=== PATIENT | male | born 1955 | race Hispanic/Latino ===

== ENCOUNTER → 2019-07-04 | Outpatient (CLI) | payer OTHER ==
[~2019-07-04] MED LIST: ASCO10007 PO; ASPI-555 PO; ATOR20TA65 PO; CLOP75TA32 PO; CYAN250010 PO; DOCU-275 PO; IRON PO; LATA1OIL MC; LEVE500T19 PO; LOSA25TA41 PO; MECL12.585 PO; METO-408 PO; NITR0.4T SL; OMEG-53 PO; TAMS0.4C32 PO
== END | disposition home or self-care (01) ==
LOC: SHCH 09:49
PROVIDERS: ATTEND Internal Medicine Cardiovascular Disease
DX: I65.23 Occlusion and stenosis of bilateral carotid arteries (principal)
CPT/HCPCS: 93880

== ENCOUNTER → 2021-03-12 | Outpatient (CLI) | payer OTHER ==
[~2021-03-12] MED LIST changes: +ASCO100031 PO; -ASCO10007 PO; -ASPI-555 PO; +ASPI-556 PO; +MECL-226 PO; -MECL12.585 PO
== END | disposition home or self-care (01) ==
LOC: SHCH 07:52
PROVIDERS: ATTEND Internal Medicine Cardiovascular Disease
DX: I65.23 Occlusion and stenosis of bilateral carotid arteries (principal); I35.1 Nonrheumatic aortic (valve) insufficiency; R01.1 Cardiac murmur, unspecified; E78.5 Hyperlipidemia, unspecified; E11.9 Type 2 diabetes mellitus without complications; I25.3 Aneurysm of heart
CPT/HCPCS: 93306; 93356; 93880

== ENCOUNTER → 2022-08-30 | Outpatient (CLI) | payer OTHER ==
[~2022-08-30] MED LIST changes: +DOCU-270 PO; -DOCU-275 PO; +REGADENOSON 0.4 MG/5 ML PF SYG IVP ONE
== END | disposition home or self-care (01) ==
LOC: SHCH 08:33
PROVIDERS: ATTEND Internal Medicine Cardiovascular Disease
DX: R07.9 Chest pain, unspecified (principal); I10 Essential (primary) hypertension; E78.5 Hyperlipidemia, unspecified; Z95.1 Presence of aortocoronary bypass graft; Z79.899 Other long term (current) drug therapy
CPT/HCPCS: 78452; 96374; 93017; J2785; A9500 ×2

== ENCOUNTER → 2023-09-23 | Outpatient (CLI) | payer OTHER ==
[~2023-09-23] MED LIST changes: -REGADENOSON 0.4 MG/5 ML PF SYG IVP ONE
== END | disposition home or self-care (01) ==
LOC: SHCH 09:01
PROVIDERS: ATTEND Internal Medicine Cardiovascular Disease
DX: I35.8 Other nonrheumatic aortic valve disorders (principal); I25.10 Atherosclerotic heart disease of native coronary artery without angina pectoris; I10 Essential (primary) hypertension; E78.5 Hyperlipidemia, unspecified; E11.9 Type 2 diabetes mellitus without complications
CPT/HCPCS: 93306

== ENCOUNTER → 2024-07-25 | Outpatient (CLI) | payer OTHER | END | disposition home or self-care (01) | LOC: SHCH 07:44 | PROVIDERS: ATTEND Internal Medicine Cardiovascular Disease | DX: R00.1 Bradycardia, unspecified (principal); R94.31 Abnormal electrocardiogram [ECG] [EKG]; I25.10 Atherosclerotic heart disease of native coronary artery without angina pectoris | CPT/HCPCS: 93306 ==

== ENCOUNTER 2024-10-26 05:36 | Observation (INO) | payer OTHER ==
--- NOTE | 2024-10-24 10:05 | EKG ---
[facility] Test Date: 2024-10-24 Test Time: 10:41:50 Pat Name: CLARE JOHNS Department: [facility] Room: Gender: M [employer] Operator: [id number] : 1955 Requested By: Iftikhar GUTIERREZ Order Number: [id number] Reading MD: Antonietta Samson Measurements Intervals [place] Rate: 50 P: 37 AR: 203 QRS: 9 QRSD: 112 T: 90 QT: 443 QTc: 402 Interpretive Statements Sinus rhythm Nonspecific repol abnormality, lateral leads Compared to ECG 11/08/2016 10:58:54 Early repolarization now present Sinus bradycardia no longer present Myocardial infarct finding no longer present Electronically Signed On 10-24-2024 16:59:43 REGULATION SUPERVISOR by Antonietta Samson Please click the below link to view image of tracing.
[2024-10-24 10:08] VITALS: BP 155/77; PULSE 56; RESP 13; TEMP 98.1
[2024-10-24 10:20] LABS: BASOPHILS # (AUTO) 0.03 K/uL (0.00-0.20); BASOPHILS % (AUTO) 0.6 % (0.0-5.0); EOSINOPHILS # (AUTO) 0.04 K/uL (0.00-0.70); EOSINOPHILS % (AUTO) 0.8 % (0.0-8.0); HEMATOCRIT 38.8 % (42-54); IMMATURE GRANULOCYTE ABSOLUTE 0.02 K/uL (0-1); LYMPHOCYTES # (AUTO) 1.7 K/uL (1.0-4.8); LYMPHOCYTES % (AUTO) 36.3 % (21.0-51.0); MEAN CORPUSCULAR HEMOGLOBIN 31.6 pg (27.0-33.0); MEAN CORPUSCULAR HGB CONC 35.1 g/dL (32.0-36.0); MEAN CORPUSCULAR VOLUME 90.2 fL (79-99); MONOCYTES # (AUTO) 0.2 K/uL (0.1-1.0); MONOCYTES % (AUTO) 5.1 % (3.0-13.0); NEUTROPHILS # (AUTO) 2.7 K/uL (1.8-7.7); NEUTROPHILS % (AUTO) 56.8 % (40.0-77.0); PLATELET COUNT (AUTO) 169 K/uL (130-400); WHITE BLOOD COUNT (AUTO) 4.7 K/uL (4.8-10.8)
[2024-10-24 10:30] LABS: CREATININE 1.1 mg/dL (0.5-1.3); POTASSIUM 3.9 mmol/L (3.5-5.1)
[2024-10-24 10:30] LABS: APPEARANCE,URINE CLOUDY (CLEAR); BILIRUBIN,URINE NEGATIVE (NEGATIVE); COLOR,URINE LIGHT-YELLOW (YELLOW); GLUCOSE, URINE (UA) NEGATIVE (NEGATIVE); KETONES,URINE NEGATIVE (NEGATIVE); LEUKOCYTE ESTERASE ,URINE NEGATIVE Leu/uL (NEGATIVE); NITRATE,URINE NEGATIVE (NEGATIVE); PH,URINE 5.5 (5.0-8.0); PROTEIN,URINE 20 mg/dL (NEGATIVE); UROBILINOGEN,URINE 0.2 mg/dL (0.2-1.0)
[2024-10-24 10:32] LABS: INR <= 0.93 (0.85-1.15); PROTHROMBIN TIME 10.5 SEC (9.6-11.6)
[2024-10-24 10:33] LABS: PARTIAL THROMBOPLASTIN TIME 29.1 SEC (26.3-35.5)
[2024-10-24 10:38] LABS: ADD UA MICROSCOPIC YES
[2024-10-24 10:42] LABS: BACTERIA,URINE RARE /HPF (None Seen); MUCUS,URINE RARE LPF (None Seen); SQUAMOUS EPITHELIAL CELL,UR RARE /HPF (0-2); UNCLASSIFIED CRYSTAL 13 /HPF (None Seen)
[2024-10-24 10:51] LABS: B-TYPE NATRIURETIC PEPTIDE 109 pg/mL (0-100)
--- NOTE | 2024-10-24 11:50 | HMCIMG ---
CHEST 1VW HISTORY: Preop COMPARISON: 11/08/2016 FINDINGS: A frontal projection of the chest was obtained. No acute pulmonary infiltrates is seen. Poststernotomy changes are seen. The heart is enlarged. Degenerative changes of the thoracolumbar spine are present. Degenerative changes are seen. Prominent interstitial markings are seen. Aortic calcifications are seen. IMPRESSION: 1. No acute pulmonary infiltrate is seen.
[~2024-10-26] VITALS: Ht 165.1 cm; Wt 80.2 kg
[2024-10-26] VITALS (15 sets, daily range): BP systolic 135–187; BP diastolic 62–82; PULSE 48–158; RESP 12–56; TEMP 97.3–98.6; O2SAT 98
[~2024-10-26 05:36] MED LIST changes: +AMLO2.5T4 PO; -ASCO100031 PO; +CHOL-34 PO; -CYAN250010 PO; +CYAN500T9 PO; -DOCU-270 PO; +FERR15DR24 PO; +FOLI20CA PO; -IRON PO; +ISOS30TA92 PO; -LATA1OIL MC; +LATA2.5D14 OP; +LOSA100T59 PO; -LOSA25TA41 PO; -MECL-226 PO; +METO-391 PO; -METO-408 PO
[2024-10-26] MEDS: 0.9%NACL 1000ML 1,000 ML IV SCH ×2 (08:51→17:52)
[2024-10-26] MEDS ORDERED: HEParin 10,000 UNIT/10ML (1,000 UNIT/ML) VIAL ONE (11:46)
[2024-10-26] MEDS ORDERED: MIDAZOLAM HCL 1 MG/ML 2ML VIAL ONE ×2 (11:46→12:41)
[2024-10-26] MEDS ORDERED: MEPERIDINE-PF 50 MG/ML SYG ONE (11:46)
[2024-10-26] MEDS ORDERED: SODIUM BICARB 50MEQ 50ML VIAL 50 ML ONE (11:46)
[2024-10-26] MEDS ORDERED: LIDOCAINE HCL 400MG/20ML VIAL ONE (11:46)
[2024-10-26] MEDS ORDERED: IOHEXOL 350 MG/ML 100ML INFUS..BTL IV ONE ×2 (11:46→12:57)
[2024-10-26] MEDS ORDERED: HEParin-NS 1,000 UNIT/500 ML 1,000 ML IV ONE (11:47)
[2024-10-26] MEDS ORDERED: NITROGLYCERIN 50MG VIAL ONE (11:48)
[2024-10-26] MEDS ORDERED: ATROPINE 1MG SYG IVP ONE (12:17)
[2024-10-26] MEDS ORDERED: IOHEXOL-350 50ML VIAL IV ONE (13:30)
--- NOTE | 2024-10-26 14:30 | NUR ---
PT ARRIVED FROM [facility] TO DAY #16 PT TOLD HE IS TO HAVE 6 HOURS OF BEDREST AND TRY NOT TO MOVE RIGHT LEG. PT MOVING RIGHT LEG LIFTING UP HEAD.
--- NOTE | 2024-10-26 14:40 | NUR ---
report received report from jorge garsia rn. rt groin with small stain unchanged per jorge but with small hematoma so pressure applied. pt tolerating it well.pt does not follow instructions and states he does what ever he wants. pt practically sitting up in bed and moving constantly,
--- NOTE | 2024-10-26 15:05 | NUR ---
PRESSURE DRESSING APPLIED TO RIGHT GROIN PT CONTINUES TO MOVE AND LIFT HEAD. PT TOLD MULTIPLE TIMES NOT TO BE MOVING OR FLEXING RIGHT LEG.
--- NOTE | 2024-10-26 15:10 | NUR ---
notified dr mayberry notified of pt status that he has bled from rt groin and does not stop moving. also informed pt does not have anyone at home or family member to give instructions to. received orders to admit. jorge garsia rn wrote orders and sent to director housekeeping. family notified of admission calin nephew
--- NOTE | 2024-10-26 15:18 | NUR ---
CALL HS FOR ADMISSION
[2024-10-26] MEDS: hydrALAZine 20MG/ML VIAL IV PRN (15:32)
--- NOTE | 2024-10-26 17:04 | CCATH ---
PROCEDURE NOTE PROCEDURES: * Left heart catheterization. * Selective diagnostic right and left coronary arteriogram. * Multiple saphenous vein graft angiogram. * WALDRON angiogram. * Balloon angioplasty and stent placement in the kotzebue intermediate. * Balloon angioplasty and stent placement in the saphenous vein graft to the diagonal. INDICATIONS: * Known history of coronary artery disease. * Status post remote coronary artery bypass graft surgery. * Recurrent angina. COMPLICATIONS: None. TOTAL CONTRAST: Approximately 200 mL. DESCRIPTION OF PROCEDURE: The patient was taken to the cardiac catheterization lab after the appropriate operative consents were signed. He was prepped and draped in the usual fashion. After conscious sedation was administered, ultrasound guidance was utilized to access the right common femoral artery and after infiltration with 2% Xylocaine without epinephrine. At this point, a 6-Ukrainian FL4 diagnostic catheter was advanced and selectively engaged the ostium of the left main. This vessel was imaged in multiplane. This was a large vessel that had a 40% ostial lesion. The left main bifurcated into an LAD and a circumflex. The intermediate vessel was also noted arising from the left main. The LAD was 100% occluded and was not seen by kotzebue injection distal to the first septal social contact worker. The circumflex was a small vessel that gave rise to several small marginal branches and ongoing circ which was 100% occluded distally. Intermediate was a large vessel that had two branches. The intermediate had ostial to proximal 90% stenotic long segment disease. The disease involved both branches. The superior branch appeared to have competitive flow, however, the larger inferior branch did not have any adequate supply. At this point, the catheter was withdrawn. FR4 6-Ukrainian catheter was advanced, selectively engaged the ostium of the right coronary artery. This was imaged in multiplane. Right coronary artery was a moderately sized vessel that had an 80% proximal stenosis and 100% occluded after the small first obtuse marginal. The kotzebue RCA was not seen by kotzebue injection. The catheter was placed in the left ventricular cavity. Left ventricular end-diastolic pressure measurement was obtained. Ventriculography was deferred. The patient had normal EF by echocardiography. There was no evidence of aortic stenosis on pullback. At this point, the catheter was engaged in the saphenous vein graft to the RCA. This was a large graft that had a Y configuration with 1 limb supplying a PDA and 1 limb supplying the PLVB. Both of those vessels were large and were occluded in the proximal portion proximal to the anastomosis. There was brisk flow in the anastomosed vessels. The catheter was then engaged in the saphenous vein graft sequential to the superior branch of the intermediate and ongoing circ supplying a small distal OM. This was patent with good flow. The catheter was then engaged in the saphenous vein graft to the diagonal. This was a moderately sized graft supplying a moderately sized diagonal. There was evidence of an 80% stenotic lesion in the mid body of the graft. At this point, the catheter was advanced in the left subclavian artery and selectively engaged in the ostium of the left internal mammary artery. This was a fairly distal orientation of the left internal mammary artery, which is not usual location. This was a large vessel that was sequentially supplying the second diagonal and LAD with brisk flow. Given the patient's symptoms and his presentation, the decision was made to proceed with angioplasty and stent placement in the intermediate vessel to supply the lower branch, which was a large vessel. The decision was also made to proceed with angioplasty and stenting of the saphenous vein graft to the diagonal. After full heparinization, the patient was managed by placing XB 3.5 catheter, which was engaged in the ostium of the left main. There was no catheter dampening or ventricularization. A 0.014 wire was advanced into the inferior branch of the obtuse marginal branch. We were then able to advance 2.75 x 38 mm Brogue Ciales stent, which was inflated to 16 atmospheres at 2.95 mm size with good final angiographic result and brisk flow. At this point, we had directed our attention to the saphenous vein to the diagonal. This had a fairly superior orientation. It was difficult to cannulate. Several guides were utilized and guide support was not adequate; however, we were able to adequately place an ART4 guide 6-Ukrainian catheter and we were able to advance 0.014 wire distal to the lesion. We then utilized a GuideLiner 6-Ukrainian. We were able to advance the stent through that. We utilized a 2.75 x 22 Arnaldo Ciales which was placed in the area of stenosis and inflated to nominal pressure with good final angiographic results. At this point, the procedure was completed, Perclose was utilized with good hemostasis. The patient tolerated the procedure well and left the cardiac catheterization lab in stable condition. FINAL IMPRESSION: * Severe kotzebue 3-vessel coronary artery disease. * Patent 7 grafts with patent sequential WALDRON to diagonal 2 and LAD, patent sequential saphenous vein graft to the superior branch of the ramus and the obtuse marginal, patent saphenous vein graft to the diagonal, patent Y graft to the PDA and PLVB with severe stenosis of the kotzebue intermediate and severe stenosis of the saphenous vein graft to the diagonal. * Successful balloon angioplasty and stent placement in the saphenous vein graft to the diagonal with a 2.75 x 22 Brogue Ciales and successful balloon angioplasty and stenting of the intermediate with a 2.75 x 38 Arnaldo Ciales with good angiographic results. PLAN: Continue medical management. TID: [id number] RECEIPT: [id number]
--- NOTE | 2024-10-26 17:20 | NUR ---
RECEIVED PATIENT FROM DAY-PATIENT, S/P CARDIAC CATH. RIGHT GROIN SOFT, WITH D-STAT ON AND DRAINAGE CIRCLED. BRUISING NOTED AROUND GROIN/PUBIC AREA. NS AT 150CC/HR UNTIL 630PM. BEDREST UNTIL 8PM. PLAN OF CARE DISCUSSED WITH PATIENT, VERBALIZED UNDERSTANDING. TELEMETRY READING SB HR 56. BILATERAL PEDAL PULSES WEAK/PALPABLE. WILL CONTINUE TO MONITOR.
--- NOTE | 2024-10-26 17:30 | NUR ---
transfer pt taken to 228 via bed. jerry sandoval given report Addendum: 10/26/24 at 1835 by MONICA LINDER RN RN transfer done at 1720
--- NOTE | 2024-10-26 18:55 | NUR ---
RIGHT GROIN AREA NOTED WITH OOZING FROM DRESSING...WILL CONTINUE TO MONITOR.
--- NOTE | 2024-10-26 19:13 | HP ---
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 As per patient ,he kept having recurrent angina and shortness of breath and after series of work up he opted and agreed to undergo cardiac catheterization procedure as discussed with him by he said.Patient also states he went for a [facility] in 2017 and was told everything was normal. Seen and examined patient in room 228 ,awake,alert and coherent.Patient appears comfortable.Patient denies chest pain,palpitation,fever ,cough and shortness of breath.Patient is on complete bedrest.I went and assessed his right groin covered with opsite and area is bruised with mild tenderness and some induration on palpation.V/S T98.6,HR 58, RR 18, BP 135/65 Sat 98% RA.Labs : WBC 4.7,Hgb 13.6,Hct 38.8,platelet 169.BNP 109 ,CO2 33 and the rest of the chemistry results are normal.Urinalysis is remarkable for protein,trace occult blood ,urine rbc 2-5,urine wbc 2-5 urine appearance is cloudy.Chest Xray result is unremarkable.ECG result taken on 10/24/2024 revealed SB HR50.Will continue to admit patient in PCCU. REVIEW OF SYSTEMS CONSTITUTIONAL: Denies fevers, chills, or night sweats. No unintentional weight loss reported. NEUROLOGICAL: Denies headache, amaurosis fugax, motor weakness, sensory deficit, vertigo/spinning sensation, gait abnormalities, or tremors. ENT: No hearing loss, otalgia, otorrhea, rhinitis, rhinorrhea, hoarseness, or sore throat. CARDIOVASCULAR: Denies any exertional angina, dyspnea on exertion, orthopnea, paroxysmal nocturnal dyspnea, palpitations, life-threatening arrhythmias, claudication. PULMONARY: Denies any shortness of breath, cough, phlegm/sputum, hemoptysis, pleuritic chest pain. SLEEP: Denies morning headaches, daytime somnolence or napping. Denies difficulty falling asleep, staying asleep, waking from sleep. Denies knowledge of snoring. GASTROINTESTINAL: Denies any type of dysphagia to either liquids or solids. Denies nausea, vomiting, pyrosis, early satiety, abdominal pain, diarrhea, constipation, or changes in stool consistency or caliber. Denies coffee-ground emesis, hematemesis, hematochezia, or melanotic stools. GENITOURINARY: Denies frequency, urgency, nocturia, hematuria or incontinence (Storage/Irritative symptoms.) Low urinary stream, straining to void, urinary intermittency or hesitancy, splitting of the voiding stream, terminal dribbling. ENDOCRINOLOGIC: Denies polyuria, polydipsia, polyphagia or heat/cold intolerances. HEMATOLOGIC: Denies thrombophilia/previous clots, or coagulopathy/bleeding disorders. ONCOLOGIC: Denies personal history of malignancy. DERMATOLOGIC: Denies rashes or pruritus. PSYCHIATRIC: Denies any suicidal or homicidal ideation. Denies hallucinations. 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 ] FAMILY HISTORY: [ Hypertension,diabetes and cardiovascular disease ] Coded Allergies: Penicillins (Verified Allergy, Unknown, 01/22/15) PHYSICAL EXAM GENERAL APPEARANCE: The patient is awake, alert, and oriented, in no acute cardiopulmonary distress. NEUROLOGICAL: Cranial nerves II-XII grossly intact. Motor is 5/5 in bilateral upper and lower extremities proximal to distal. No sensory deficits. HEENT: Face is symmetric. Pupils are equal and reactive. Extraocular movements are intact. NECK: Supple. No JVD. No thyromegaly. No submental, submandibular, pre- /postauricular, occipital or supraclavicular lymphadenopathy. CHEST: Normal chest expansion. No Telemetry. LUNGS: Absence of any rales, rhonchi or any wheezing. CARDIOVASCULAR: Regular. S1 and S2 normal. No appreciable rubs, murmurs or gallops. ABDOMEN: Soft, nontender, and nondistended. There is no rebound, voluntary guarding, or rigidity. : Deferred. No Gutierrez. EXTREMITIES: Non-edematous and not cyanotic. No clubbing. Good capillary refill. SKIN: No skin breakdown. Vital Sign (Last 24 Hours) 10/26/24 10/26/24 10/26/24 17:30 17:45 18:15 Temp 98.2 Pulse 56 Resp 18 B/P (MAP) 135/65 Pulse Ox 98 O2 Delivery Room Air O2 Flow Rate 0 FiO2 21 LABS: Current Medications Medications (Trade) Dose Ordered Sig/Rosalina Route PRN Reason Start Time Stop Time Status Last Admin Dose Admin Hydralazine HCl (APRESOLine 20MG INJ) 10 mg Q6H PRN IV ADMINISTER FOR SBP > 160 10/26/24 15:30 11/25/24 15:29 10/26/24 15:32 10 MG Sodium Chloride 1,000 ml @ 0 mls/hr Q0M IV 10/26/24 08:00 11/25/24 07:59 10/26/24 08:51 20 MLS/HR Sodium Chloride 1,000 ml @ 150 mls/hr Q6H40M IV 10/26/24 14:30 10/26/24 18:29 DC DIAGNOSTICS / RADIOLOGY: [ ] ASSESSMENT: Severe habematolel 3 vessel Coronary Artery Disease per [facility] result POA S/P [place] angioplasty and cardiac stent placement x 2 on 10/26/2024 by Persistent Bradycardia POA Possible Right femoral access site hematoma POA Hypertension POA Hyperlipidemia POA Seizure disorder POA BPH POA Acute normocytic normochromic anemia POA Elevated BNP POA Suspected urinary tract infection POA History of Diabetes POA History of CABG X7 on 06/06/[address]Ruben Hawthorne POA PLAN: We will admit patient in PCCU Start on heart healthy diet Start on Rocephin 1 gram IV daily for empiric coverage Will start on Famotidine 20mg po bid for GI prophylaxis Will replace electrolytes as needed per protocol Will start insulin sliding scale AC&HS with hypoglycemia protocol Home meds reconciled Will add prn medication for fever,nausea & vomiting Will request neurovascular checks Q4H Will obtain soft tissue ultrasound to right femoral access site Will request case management service Cardiac meds as per cardiology.Holding off BB at this time due to persistent bradycardia however Losartan 100 and Norvasc 2.5 are resumed. Will request urine culture and follow up result and re evaluate antibiotic. Will check labs in am Will follow training generalist recommendations Further recommendations to follow depending upon hospitalization course Case discussed with attending MD and came up with above treatment and plan of care ADVANCED CARE PLANNING 1. Which of the following were discussed? Hospice Care - No Therapeutic options - Yes Advance Directives - No Other discussions - 2. Discussed with who? Patient 3. Voluntary nature of this service was explained to the patient? Yes 4. Amount of time spent - _25 5. Reviewed by Physician? (if this service was performed by NPP) Yes Patient seen and examined by me. Agree with note by [employer] RECOVERY WORKER SEE ADDITIONAL ORDERS PER CHART DISCUSSED WITH NURSING STAFF LEELEE HODGEP Oct 26, 2024 19:13
[2024-10-26] MEDS ORDERED: PoTASSium chloRIDE 20MEQ/100ML 100 ML IV PRN (19:30)
[2024-10-26] MEDS ORDERED: PoTASSium chloRIDE 20MEQ ER 20 MEQ ERTAB PO PRN (19:30)
[2024-10-26] MEDS ORDERED: PoTASSium chl 10% ELIXIR 20MEQ 20 MEQ/15 ML UDCUP PO PRN (19:30)
[2024-10-26] MEDS ORDERED: MAGNESIUM 2GM PREMIX 50ML 50 ML IV PRN (19:30)
[2024-10-26] MEDS ORDERED: DEXTROSE 50%-WATER 50 ML DISP.SYRIN IV PRN (20:00)
[2024-10-26] MEDS ORDERED: GLUCAGON 1MG KIT 1 MG ML IM PRN (20:00)
[2024-10-26] MEDS: FAMOTIDINE 20MG TAB PO SCH (20:42)
[2024-10-26] MEDS: atorVAStatin 20 MG TABLET PO SCH (20:42)
[2024-10-26] MEDS: tamSULOsin HCL 0.4 MG CAP.ER.24H PO SCH (20:42)
[2024-10-26] MEDS: INSULIN humuLIN R 100 UNIT/ML 3ML SQ SCH (20:42)
[2024-10-26] MEDS: leveTIRACEtam 500 MG TABLET PO SCH (20:42)
[2024-10-26] MEDS: cefTRIAXone 1G VIAL IVPB SCH (20:52)
[2024-10-27] VITALS (9 sets, daily range): BP systolic 128–155; BP diastolic 48–77; PULSE 60–94; RESP 18–21; TEMP 97.8–98.8; O2SAT 96
[2024-10-27 03:46] LABS: BASOPHILS # (AUTO) 0.02 K/uL (0.00-0.20); BASOPHILS % (AUTO) 0.3 % (0.0-5.0); HEMATOCRIT 34.3 % (42-54); IMMATURE GRANULOCYTE ABSOLUTE 0.02 K/uL (0-1); LYMPHOCYTES # (AUTO) 1.2 K/uL (1.0-4.8); LYMPHOCYTES % (AUTO) 19.5 % (21.0-51.0); MEAN CORPUSCULAR HEMOGLOBIN 31.9 pg (27.0-33.0); MEAN CORPUSCULAR HGB CONC 34.4 g/dL (32.0-36.0); MEAN CORPUSCULAR VOLUME 92.7 fL (79-99); MONOCYTES # (AUTO) 0.4 K/uL (0.1-1.0); MONOCYTES % (AUTO) 6.2 % (3.0-13.0); NEUTROPHILS # (AUTO) 4.6 K/uL (1.8-7.7); NEUTROPHILS % (AUTO) 73.7 % (40.0-77.0); PLATELET COUNT (AUTO) 161 K/uL (130-400); RED CELL DISTRIBUTION WIDTH 12.3 % (11.0-15.5); WHITE BLOOD COUNT (AUTO) 6.3 K/uL (4.8-10.8)
[2024-10-27 04:08] LABS: ALBUMIN 3.6 g/dL (3.5-5.0); BILIRUBIN,TOTAL 0.7 mg/dL (0.2-1.0); CREATININE 2.1 mg/dL (0.5-1.3); MAGNESIUM 2.1 mg/dL (1.80-2.40); THYROID STIMULATING HORMONE 1.07 uIU/mL (0.36-3.74); TOTAL PROTEIN, SERUM 6.8 g/dL (6.0-8.3)
[2024-10-27 04:09] LABS: B-TYPE NATRIURETIC PEPTIDE 53 pg/mL (0-100)
[2024-10-27 04:16] LABS: HEMOGLOBIN A1C 5.4 % (4.0-6.0)
--- NOTE | 2024-10-27 08:59 | HMCIMG ---
Exam Type: US SOFT TISSUE GROIN Clinical Information: right groin swelling post cath procedure Comparison: None Findings and impression: Common femoral artery and vein are compressible. There is a complex fluid collection consistent with hematoma without internal flow at the right groin area of concern, 2.3 x 3.1 cm.
[2024-10-27] MEDS: VITAMIN D3 PO SCH (09:00)
[2024-10-27] MEDS: FOLATE 666 MCG PO SCH (09:00)
[2024-10-27] MEDS: ASPIRIN 81 MG EC TAB PO SCH (09:14)
[2024-10-27] MEDS: LoSARTan 100 MG TABLET PO SCH (09:14)
[2024-10-27] MEDS: FERROUS SULFATE 325 MG TABLET.DR PO SCH (09:15)
[2024-10-27] MEDS: CYANOCOBALAMIN (VITAMIN B-12) 1,000 MCG TABLET PO SCH (09:15)
[2024-10-27] MEDS: cloPIDOgrel 75MG TAB PO SCH (09:16)
[2024-10-27] MEDS: amLODIPine 2.5 MG TAB PO SCH (09:17)
--- NOTE | 2024-10-27 10:52 | PN ---
[facility] PROGRESS NOTE Date of Service: Oct 27, 2024 Time of Service: 10:49 SUBJECTIVE: [ ] 10/27 patient is seen and examined at bedside, case discussed with the RN, patient underwent left heart catheterization yesterday, with the development of right groin hematoma. Ultrasound soft tissue reviewed, there is a complex fluid collection consistent with a hematoma without interested flow of the right groin area of concern, 2.3 x 3.1 cm. Common femoral artery and vein are compressible. During my visit the patient is comfortably in bed, alert and oriented x3, following commands, hemodynamically stable, BP 140/71, rest of the vital signs a re stable. Mild drop in hemoglobin to 11.8 from 13.6 yesterday. Continue the patient on IV antibiotics, follow results of urine culture. Plan of action discussed with the patient, all questions answered, in agreement. REVIEW OF SYSTEMS CONSTITUTIONAL: Denies fevers, chills, or night sweats. No unintentional weight loss reported. NEUROLOGICAL: Denies headache, amaurosis fugax, motor weakness, sensory deficit, vertigo/spinning sensation, gait abnormalities, or tremors. ENT: No hearing loss, otalgia, otorrhea, rhinitis, rhinorrhea, hoarseness, or sore throat. CARDIOVASCULAR: Denies any exertional angina, dyspnea on exertion, orthopnea, paroxysmal nocturnal dyspnea, palpitations, life-threatening arrhythmias, claudication. PULMONARY: Denies any shortness of breath, cough, phlegm/sputum, hemoptysis, pleuritic chest pain. SLEEP: Denies morning headaches, daytime somnolence or napping. Denies difficulty falling asleep, staying asleep, waking from sleep. Denies knowledge of snoring. GASTROINTESTINAL: Denies any type of dysphagia to either liquids or solids. Denies nausea, vomiting, pyrosis, early satiety, abdominal pain, diarrhea, constipation, or changes in stool consistency or caliber. Denies coffee-ground emesis, hematemesis, hematochezia, or melanotic stools. GENITOURINARY: Denies frequency, urgency, nocturia, hematuria or incontinence (Storage/Irritative symptoms.) Low urinary stream, straining to void, urinary intermittency or hesitancy, splitting of the voiding stream, terminal dribbling. ENDOCRINOLOGIC: Denies polyuria, polydipsia, polyphagia or heat/cold intolerances. HEMATOLOGIC: Denies thrombophilia/previous clots, or coagulopathy/bleeding disorders. ONCOLOGIC: Denies personal history of malignancy. DERMATOLOGIC: Denies rashes or pruritus. PSYCHIATRIC: Denies any suicidal or homicidal ideation. Denies hallucinations. PHYSICAL EXAM GENERAL APPEARANCE: The patient is awake, alert, and oriented, in no acute cardiopulmonary distress. NEUROLOGICAL: Cranial nerves II-XII grossly intact. Motor is 5/5 in bilateral upper and lower extremities proximal to distal. No sensory deficits. HEENT: Face is symmetric. Pupils are equal and reactive. Extraocular movements are intact. NECK: Supple. No JVD. No thyromegaly. No submental, submandibular, pre- /postauricular, occipital or supraclavicular lymphadenopathy. CHEST: Normal chest expansion. No Telemetry. LUNGS: Absence of any rales, rhonchi or any wheezing. CARDIOVASCULAR: Regular. S1 and S2 normal. No appreciable rubs, murmurs or gallops. ABDOMEN: Soft, nontender, and nondistended. There is no rebound, voluntary guarding, or rigidity. Right groin hematoma noted, pulses are palpable. : Deferred. No Gutierrez. EXTREMITIES: Non-edematous and not cyanotic. No clubbing. Good capillary refill. SKIN: No skin breakdown. Vital Signs (last 8hr) Date Time Temp Pulse Resp B/P (MAP) Pulse Ox O2 Delivery O2 Flow Rate FiO2 10/27/24 08:14 97.9 60 18 140/71 96 10/27/24 04:46 98.8 60 18 137/69 97 Room Air LABS: Laboratory: Test 10/27/24 05:35 10/27/24 03:31 Range/Units Whole Blood Glucose 102 70-110 MG/DL White Blood Count 6.3 4.8-10.8 K/uL Red Blood Count 3.70 L 4.50-6.20 MIL/uL Hemoglobin 11.8 L 14.0-18.0 g/dL Hematocrit 34.3 L 42-54 % Mean Corpuscular Volume 92.7 79-99 fL Mean Corpuscular Hemoglobin 31.9 27.0-33.0 pg Mean Corpuscular Hemoglobin Concent 34.4 32.0-36.0 g/dL Red Cell Distribution Width 12.3 11.0-15.5 % Platelet Count 161 130-400 K/uL Mean Platelet Volume 9.3 7.5-10.5 fL Immature Granulocyte % (Auto) 0.3 0-1 % Neutrophils (%) (Auto) 73.7 40.0-77.0 % Lymphocytes (%) (Auto) 19.5 L 21.0-51.0 % Monocytes (%) (Auto) 6.2 3.0-13.0 % Eosinophils (%) (Auto) 0.0 0.0-8.0 % Basophils (%) (Auto) 0.3 0.0-5.0 % Neutrophils # (Auto) 4.6 1.8-7.7 K/uL Lymphocytes # (Auto) 1.2 1.0-4.8 K/uL Monocytes # (Auto) 0.4 0.1-1.0 K/uL Eosinophils # (Auto) 0.00 0.00-0.70 K/uL Basophils # (Auto) 0.02 0.00-0.20 K/uL Absolute Immature Granulocyte (auto 0.02 0-1 K/uL Nucleated Red Blood Cells 0.0 0.0-0.19 % Sodium Level 143 136-145 mmol/L Potassium Level 4.0 3.5-5.1 mmol/L Chloride Level 107 101-111 mmol/L Carbon Dioxide Level 25 21-32 mmol/L Blood Urea Nitrogen 38 H 7-18 mg/dL Creatinine 2.1 H 0.5-1.3 mg/dL Glomerular Filtration Rate Calc 33 >90 mL/min Random Glucose 115 H 70-105 mg/dL Hemoglobin A1c 5.4 4.0-6.0 % Estimated Average Glucose (eAG) 108 70-126 mg/dL Total Calcium 8.7 8.5-10.1 mg/dL Magnesium Level 2.10 1.80-2.40 mg/dL Total Bilirubin 0.7 0.2-1.0 mg/dL Aspartate Amino Transf (AST/SGOT) 22 10-37 U/L Alanine Aminotransferase (ALT/SGPT) 23 12-78 U/L Alkaline Phosphatase 94 50-136 U/L B-Type Natriuretic Peptide 53 0-100 pg/mL Total Protein 6.8 6.0-8.3 g/dL Albumin 3.6 3.5-5.0 g/dL Triglycerides Level 87 30-200 mg/dL Cholesterol Level 113 <200 mg/dL LDL Cholesterol 58 0-99 mg/dL HDL Cholesterol 45 29-71 mg/dL Thyroid Stimulating Hormone (TSH) 1.07 0.36-3.74 uIU/mL Current Medications Medications (Trade) Dose Ordered Sig/Rosalina Route PRN Reason Start Time Stop Time Status Last Admin Dose Admin Amlodipine Besylate (NorvASC 2.5MG TAB) 2.5 mg AM PO 10/27/24 09:00 11/26/24 08:59 10/27/24 09:17 2.5 MG Aspirin (Aspirin 81mg Ec Tab) 81 mg DAILY PO 10/27/24 09:00 11/26/24 08:59 10/27/24 09:14 81 MG Atorvastatin Calcium (LIPItor 20MG) 20 mg HS PO 10/26/24 21:00 11/25/24 20:59 10/26/24 20:42 20 MG Ceftriaxone Sodium (ROCEphine 1G INJ) 1 gm Q24H IVPB 10/26/24 20:30 11/05/24 20:29 10/26/24 20:52 1 GM Clopidogrel Bisulfate (plaVIX 75MG) 75 mg DAILY PO 10/27/24 09:00 11/26/24 08:59 10/27/24 09:16 75 MG Dextrose (D50w) 50 ml AD PRN IV HYPOGLYCEMIA PROTOCOL 10/26/24 20:00 11/25/24 19:59 Famotidine (Pepcid 20mg Tab) 20 mg BID PO 10/26/24 21:00 11/25/24 20:59 10/27/24 09:16 20 MG Ferrous Sulfate (Ferrous Sulfate) 325 mg AM PO 10/27/24 09:00 11/26/24 08:59 10/27/24 09:15 325 MG Glucagon (Glucagon 1mg Kit) 1 mg AD PRN IM HYPOGLYCEMIA PROTOCOL 10/26/24 20:00 11/25/24 19:59 Home Med (Home Medication) AM PO 10/27/24 09:00 11/26/24 08:59 Home Med (Home Medication) (Vitamin D3) 25 MCG) AM PO 10/27/24 09:00 11/26/24 08:59 Home Med (Home Medication) 1 each DAILYLUNCH PO 10/27/24 12:00 11/26/24 11:59 Hydralazine HCl (APRESOLine 20MG INJ) 10 mg Q6H PRN IV ADMINISTER FOR SBP > 160 10/26/24 15:30 11/25/24 15:29 10/26/24 15:32 10 MG Insulin Human Regular (humuLIN R 100 UNIT/ML 3ML) INSULIN SLIDING SCAL... ACHS SQ 10/26/24 21:00 11/25/24 20:59 Levetiracetam (kepPRA 500 MG TABLET) 500 mg BID PO 10/26/24 21:00 11/25/24 20:59 10/27/24 09:17 500 MG Losartan Potassium (CozAAR 100MG TAB) 100 mg AM PO 10/27/24 09:00 11/26/24 08:59 10/27/24 09:14 100 MG Magnesium Sulfate 50 ml @ 0 mls/hr PROTOCOL PRN IV OTHER [SEE ORDER COMMENTS] 10/26/24 19:30 11/25/24 19:29 Pharmacy Profile Note (Pharmacy Communication) PLEASE CLARIFY FOL... Q30MIN MISC 10/26/24 19:30 10/27/24 08:01 DC Potassium Chloride 100 ml @ 100 mls/hr AD PRN IV POTASSIUM PROTOCOL 10/26/24 19:30 11/25/24 19:29 Potassium Chloride (K-Dur/Klor-Con 20meq) 20 meq AD PRN PO POTASSIUM PROTOCOL 10/26/24 19:30 11/25/24 19:29 Potassium Chloride (KCl 10% Elixir 20meq/15ml) 20 meq AD PRN PO POTASSIUM PROTOCOL 10/26/24 19:30 11/25/24 19:29 Sodium Chloride 1,000 ml @ 0 mls/hr Q0M IV 10/26/24 08:00 11/25/24 07:59 10/26/24 08:51 20 MLS/HR Sodium Chloride 1,000 ml @ 150 mls/hr Q6H40M IV 10/26/24 14:30 10/26/24 18:29 DC Tamsulosin HCl (FloMAX) 0.4 mg HS PO 10/26/24 21:00 11/25/24 20:59 10/26/24 20:42 0.4 MG Vitamin B Complex (Vitamin B-12) 500 mcg AM PO 10/27/24 09:00 11/26/24 08:59 10/27/24 09:15 500 MCG DIAGNOSTICS / RADIOLOGY: [ ] Exam Type: US SOFT TISSUE GROIN Clinical Information: right groin swelling post cath procedure Comparison: None Findings and impression: Common femoral artery and vein are compressible. There is a complex fluid collection consistent with hematoma without internal flow at the right groin area of concern, 2.3 x 3.1 cm. ASSESSMENT: Severe [place] 3 vessel Coronary Artery Disease per [facility] result POA S/P [place] angioplasty and cardiac stent placement x 2 on 10/26/2024 by Right groin hematoma, NPOA Persistent Bradycardia POA Possible Right femoral access site hematoma POA Hypertension POA Hyperlipidemia POA Seizure disorder POA BPH POA Acute normocytic normochromic anemia POA Elevated BNP POA Suspected urinary tract infection POA History of Diabetes POA History of CABG X7 on 06/06/[address]Ruben Hawthorne POA PLAN: Patient remains admitted to the PCU Continue child monitor Ultrasound soft tissue of the right groin complex fluid collection consistent with a hematoma. We will follow Cardiology input and recommendation Continue Rocephin g IV daily, follow results of urine culture, adjust antibiotics based on identification and sensitivity NEURO: Minimize central acting medications as possible. Fall Precautions. Well lighted room through the day and minimize interruptions through the night to prevent acute delirium. PULMONARY: Supplemental 02 as needed BiPAP as necessary, for respiratory distress Titrate Fio2 to keep Spo2 > or = 90% DuoNebs and CPT as needed IS hourly while awake for pulmonary hygiene prn Out of bed to chair as tolerated Maintain aspiration precautions at all times CARDIOVASCULAR: Follow hemodynamics. Vital signs per facility protocol GI & NUTRITION: Continue nutritional support Aspirations precautions Prokinetic agents and laxatives as needed KIDNEYS & ELECTROLYTES: Strict monitoring of intake and output Daily weights Avoid nephrotoxic agents Monitor electrolytes and replace as needed Goal urine output of 30mL/hr or 0.5mL/kg/hr Medications to be dosed according to renal function. Avoid contrast if possible ENDOCRINE: Maintain blood glucose between 100-180 at all times. Insulin sliding scale for blood glucose management Hypoglycemia and hyperglycemia protocol in place INFECTIOUS DISEASE: Trend temperature, WBC and procalcitonin level Follow cultures, deescalate antibiotics as soon as possible. Panculture if new onset fever HEMATOLOGY & COAGULATION: Monitor H&H. Keep Hgb > 7 Transfuse 1 unit of PRBC for Hgb < 7 Transfuse 1 pack of platelets of platelets < 20, 000 Watch for any signs and symptoms of bleeding SKIN: Pressure ulcer prevention per facility protocol Specialty mattress as needed ORTHO/REHAB Continue PT/OT PRN: MEDICATIONS Tylenol 650 mg po every 4 hrs for fever zofran 4 mg IV every 6 hrs for n/v Hydralazine 5 mg IV every 4 hrs systolic pressure > 160 bowel regiment: lactulose 20 gm PO BID PRN constipation Supportive measures: Continue GI and DVT prophylaxis Disposition: Pending improvement of clinical condition, patient with development of right groin hematoma, further recommendations per Cardiology. Continue antibiotics, follow results of urine culture. All questions answered time spent: > 35 min INO SCOHFIELD MD Oct 27, 2024 10:52
[2024-10-27] MEDS: FISH OIL PO SCH (12:00)
[2024-10-27] MEDS: D3 PO SCH (12:00)
[2024-10-27] MEDS: OMEGA PO SCH (12:00)
[2024-10-27] MEDS: DHA PO SCH (12:00)
[2024-10-27] MEDS: EPA PO SCH (12:00)
--- NOTE | 2024-10-27 14:37 | PN ---
[facility] CARDIOLOGY PROGRESS NOTE Date Patient Seen: Oct 27, 2024 Attending Receptionist/Telephone Operator: Dr. Antonietta Samson Primary Receptionist/Telephone Operator: Dr. Deepak Burks Reason for Consult: CAD s/p PCI Interval History: This is a 69y/o male who was seen and evaluated at the bedside today. The patient underwent successful PCI with GALINDO placement to the Ramus and within the SVG-D1. His postprocedure course was complicated by bleeding at the right groin access site, prompting overnight observation. The patient denies any chest pain, chest pressure, palpitations, or shortness of breath. There were no overnight reported events. Physical Examination: GENERAL: [No acute distress. Chronically ill appearing. ] HEAD: [Normal with no signs of head trauma.] EYES: [PERRLA, EOMI, conjunctiva and sclera normal.] NECK: [Supple without JVD. There is no tenderness, lymphadenopathy, or masses. No thyromegaly. Normal carotid upstrokes without bruits.] LUNGS: [SCM. Bilateral air entry. Clear breath sounds bilaterally. No obvious wheezing, rales, or rhonchi.] HEART: [Regular rate. Normal S1 and S2. No obvious murmurs, gallops, or rubs noted.] VASC: [Peripheral pulses +2 bilaterally. There is extensive bruising noted to the right groin access site.] EXT: [No clubbing, cyanosis or edema.] NEURO: [Awake, alert, and oriented. No focal neurological deficits noted.] Laboratory: Hematology Labs: Test 10/27/24 03:31 Range/Units White Blood Count 6.3 4.8-10.8 K/uL Red Blood Count 3.70 L 4.50-6.20 MIL/uL Hemoglobin 11.8 L 14.0-18.0 g/dL Hematocrit 34.3 L 42-54 % Mean Corpuscular Volume 92.7 79-99 fL Mean Corpuscular Hemoglobin 31.9 27.0-33.0 pg Mean Corpuscular Hemoglobin Concent 34.4 32.0-36.0 g/dL Red Cell Distribution Width 12.3 11.0-15.5 % Platelet Count 161 130-400 K/uL Mean Platelet Volume 9.3 7.5-10.5 fL Immature Granulocyte % (Auto) 0.3 0-1 % Neutrophils (%) (Auto) 73.7 40.0-77.0 % Lymphocytes (%) (Auto) 19.5 L 21.0-51.0 % Monocytes (%) (Auto) 6.2 3.0-13.0 % Eosinophils (%) (Auto) 0.0 0.0-8.0 % Basophils (%) (Auto) 0.3 0.0-5.0 % Neutrophils # (Auto) 4.6 1.8-7.7 K/uL Lymphocytes # (Auto) 1.2 1.0-4.8 K/uL Monocytes # (Auto) 0.4 0.1-1.0 K/uL Eosinophils # (Auto) 0.00 0.00-0.70 K/uL Basophils # (Auto) 0.02 0.00-0.20 K/uL Absolute Immature Granulocyte (auto 0.02 0-1 K/uL Nucleated Red Blood Cells 0.0 0.0-0.19 % Chemistry Labs: Test 10/27/24 11:08 10/27/24 03:31 Range/Units Whole Blood Glucose 155 #H 70-110 MG/DL Sodium Level 143 136-145 mmol/L Potassium Level 4.0 3.5-5.1 mmol/L Chloride Level 107 101-111 mmol/L Carbon Dioxide Level 25 21-32 mmol/L Blood Urea Nitrogen 38 H 7-18 mg/dL Creatinine 2.1 H 0.5-1.3 mg/dL Glomerular Filtration Rate Calc 33 >90 mL/min Random Glucose 115 H 70-105 mg/dL Hemoglobin A1c 5.4 4.0-6.0 % Estimated Average Glucose (eAG) 108 70-126 mg/dL Total Calcium 8.7 8.5-10.1 mg/dL Magnesium Level 2.10 1.80-2.40 mg/dL Total Bilirubin 0.7 0.2-1.0 mg/dL Aspartate Amino Transf (AST/SGOT) 22 10-37 U/L Alanine Aminotransferase (ALT/SGPT) 23 12-78 U/L Alkaline Phosphatase 94 50-136 U/L B-Type Natriuretic Peptide 53 0-100 pg/mL Total Protein 6.8 6.0-8.3 g/dL Albumin 3.6 3.5-5.0 g/dL Triglycerides Level 87 30-200 mg/dL Cholesterol Level 113 <200 mg/dL LDL Cholesterol 58 0-99 mg/dL HDL Cholesterol 45 29-71 mg/dL Thyroid Stimulating Hormone (TSH) 1.07 0.36-3.74 uIU/mL Assessment: -CAD s/p PCI with GALINDO placement (MOF 2.75x38 mm) in the Ramus and GALINDO placement (MOF 2.75x22 mm) in the body of the SVG-D1 done on 10/26/2024 -Postprocedure acute blood loss anemia -Right groin hematoma (2.3x3.1 cm) identified on ultrasound done 10/26/2024 -BLANCA -CAD s/p 7V CABG (sequential DBFY-MQD-BFHO, sequential VNX-Edclx-OQ, SVG-DIAG, Y graft to the RPDA-RPLB) -HTN -HLP -Seizure disorder on AED therapy -BPH Plan: 1. CAD s/p PCI with GALINDO placement (MOF 2.75x38 mm) in the Ramus and GALINDO placement (MOF 2.75x22 mm) in the body of the SVG-D1 done on 10/26/2024 -Continue aspirin 81 mg daily, clopidogrel 75 mg daily, and atorvastatin 20 mg QHS. -We will repeat a CBC in the AM in order to assess the stability of his post procedure blood loss. 2. BLANCA -BUN/creatinine: 38/2.1, previously: 12/.1 -We will repeat a CMP in the AM to reassess the patient's renal function. If the patient's laboratory data remains stable and his right groin hematoma remains stable overnight, then he should be able to be discharged tomorrow. This case was discussed with my Supervising Physician, Dr. Antonietta Samson, and the above mentioned plan was formulated and agreed upon. -Progress Note written by Yogi Escalona, MSN, INSTRUMENTATION CONTROLS ENGINEER, AGACNP-BC YOGI ESCALONA NP Oct 27, 2024 14:37
--- NOTE | 2024-10-27 16:45 | NUR ---
INITIAL/DCP HOME Met w pt this afternoon to discuss dcp. Also spoke w EC Niniki Becker via phone @ [phone]. Pt lives alone. He uses a rollator for ambulation and is independent w ADLs. He usually uses [facility] transport or walks where needed. Discussed poss need for short term SNF. Pt and niece decline this option. 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 DCP is for home. Addendum: 10/28/24 at 1651 by NEO DUNHAM CM Amended: Links added.
[2024-10-28 04:01] VITALS: BP 126/66; PULSE 60; RESP 21; TEMP 98.5
[2024-10-28 04:15] LABS: BASOPHILS # (AUTO) 0.03 K/uL (0.00-0.20); BASOPHILS % (AUTO) 0.4 % (0.0-5.0); EOSINOPHILS # (AUTO) 0.04 K/uL (0.00-0.70); EOSINOPHILS % (AUTO) 0.6 % (0.0-8.0); HEMATOCRIT 30.6 % (42-54); IMMATURE GRANULOCYTE ABSOLUTE 0.01 K/uL (0-1); LYMPHOCYTES # (AUTO) 2.5 K/uL (1.0-4.8); MEAN CORPUSCULAR HGB CONC 35.9 g/dL (32.0-36.0); MONOCYTES # (AUTO) 0.5 K/uL (0.1-1.0); MONOCYTES % (AUTO) 6.2 % (3.0-13.0); NEUTROPHILS # (AUTO) 4.2 K/uL (1.8-7.7); NEUTROPHILS % (AUTO) 57.7 % (40.0-77.0); PLATELET COUNT (AUTO) 145 K/uL (130-400); RED BLOOD CELL COUNT(AUTO) 3.44 MIL/uL (4.50-6.20); RED CELL DISTRIBUTION WIDTH 12.3 % (11.0-15.5); WHITE BLOOD COUNT (AUTO) 7.3 K/uL (4.8-10.8)
[2024-10-28 04:32] LABS: ALBUMIN 3.5 g/dL (3.5-5.0); BILIRUBIN,TOTAL 0.6 mg/dL (0.2-1.0); CREATININE 1.5 mg/dL (0.5-1.3); POTASSIUM 3.7 mmol/L (3.5-5.1); TOTAL PROTEIN, SERUM 6.8 g/dL (6.0-8.3)
[2024-10-28 08:00] VITALS: BP 142/79; PULSE 64; RESP 16; TEMP 98.4; O2SAT 97
[2024-10-28 12:07] VITALS: BP 155/88; PULSE 66; RESP 16; TEMP 98.1
--- NOTE | 2024-10-28 12:11 | DS ---
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 Patient was found to have patent 7 grafts with severe [place] 3 vessel CAD and patient is to continue medical management as per 's recommendation. V/S T98.6,HR 58, RR 18, BP 135/65 Sat 98% RA. Labs : WBC 4.7,Hgb 13.6,Hct 38.8,platelet 169.BNP 109 ,CO2 33 and the rest of the chemistry results are normal.Urinalysis is remarkable for protein,trace occult blood ,urine rbc 2-5,urine wbc 2-5 urine appearance is cloudy. Chest Xray result is unremarkable. ECG result taken on 10/24/2024 revealed SB HR50. Post procedure patient developed bleeding to the right groin access, prompting overnight observation. Soft tissue ultrasound of the right groin done, complex fluid collection consistent with a hematoma. Today patient is alert oriented x3, hemodynamically stable, cleared from cardiac standpoint to be discharged home. Patient denies dizziness, no headache, no chest pain, no shortness a breath, no nausea, no vomiting, no abdominal pain, no pain to the right groin area, no diarrhea, no constipation, no melena, no hematochezia, no hematemesis, no hematuria, no dysuria. PHYSICAL EXAM GENERAL APPEARANCE: The patient is awake, alert, and oriented, in no acute cardiopulmonary distress. NEUROLOGICAL: Cranial nerves II-XII grossly intact. Motor is 5/5 in bilateral upper and lower extremities proximal to distal. No sensory deficits. HEENT: Face is symmetric. Pupils are equal and reactive. Extraocular movements are intact. NECK: Supple. No JVD. No thyromegaly. No submental, submandibular, pre- /postauricular, occipital or supraclavicular lymphadenopathy. CHEST: Normal chest expansion. No Telemetry. LUNGS: Absence of any rales, rhonchi or any wheezing. CARDIOVASCULAR: Regular. S1 and S2 normal. No appreciable rubs, murmurs or gallops. ABDOMEN: Small right groin hematoma, unchanged. : Deferred. No Gutierrez. EXTREMITIES: Non-edematous and not cyanotic. No clubbing. Good capillary refill. SKIN: No skin breakdown. Line Mechanic(s): Cardiology. Procedure(s): The patient underwent successful PCI with GALINDO placement to the Ramus and within the SVG-D1. Assessment/Plan: Final diagnosis Severe [place] 3 vessel Coronary Artery Disease per [facility] result POA S/P [place] angioplasty and cardiac stent placement x 2 on 10/26/2024 by Right groin hematoma, NPOA Persistent Bradycardia POA Possible Right femoral access site hematoma POA Hypertension POA Hyperlipidemia POA Seizure disorder POA BPH POA Acute normocytic normochromic anemia POA Elevated BNP POA Suspected urinary tract infection POA History of Diabetes POA History of CABG X7 on 06/06/[address]Ruben Hawthorne POA Discharge Instructions: Patient to follow with the PCP and Cardiology as an outpatient. Advised to return to the hospital if condition changes. Patient agreed with the plan and understood the information provided. Home Medications: Reported Medications Cholecalciferol (Vitamin D3) (Vitamin D3) 25 Mcg (1000 Unit) Tablet, 25 MCG PO AM, TAB 10/24/24 Cyanocobalamin (Vitamin B-12) 500 Mcg Tab, 500 MCG PO AM, TAB 10/24/24 Latanoprost (Latanoprost) 0.005 % Drops, 2.5 ML OP AM, DROP 10/24/24 Losartan Potassium (Losartan Potassium) 100 Mg Tablet, 100 MG PO AM, TAB 10/24/24 Metoprolol Succinate (Metoprolol Succinate) 50 Mg Tab.er.24h, 50 MG PO AM, TAB 10/24/24 Levetiracetam (Levetiracetam) 500 Mg Tablet, 500 MG PO BID, TAB 10/24/24 Isosorbide Mononitrate (Isosorbide Mononitrate ER) 30 Mg Tab.er.24h, 30 MG PO AM, TAB 10/24/24 Folic Acid (Folic Acid) 20 Mg Capsule, 666 MCG PO AM, CAP 10/24/24 Ferrous Sulfate (Ferrous Sulfate) 15 Mg Iron (75 Mg)/Ml Drops, 65 MG PO AM, DROP 10/24/24 Amlodipine Besylate (Amlodipine Besylate) 2.5 Mg Tablet, 2.5 MG PO AM, TAB 10/24/24 [place]-3S/Dha/Epa/Fish Oil/D3 (Fish Oil + D3 Softgel) 1 Each Capsule, 1 EACH PO DAILYLUNCH, CAP 11/08/16 Atorvastatin Calcium (Atorvastatin Calcium) 20 Mg Tablet, 20 MG PO HS, TAB 11/08/16 Tamsulosin HCl (Tamsulosin HCl) 0.4 Mg Cap.er.24h, 0.4 MG PO HS, CAPSULE.DR 11/08/16 Aspirin (Aspir 81) 81 Mg Tablet.dr, 81 MG PO DAILY, TAB 01/23/15 Nitroglycerin (Nitrostat) 0.4 Mg Tab.subl, 1 TAB SL Q5M PRN for CHEST PAIN, #25 01/23/15 Clopidogrel Bisulfate (Clopidogrel) 75 Mg Tablet, 75 MG PO DAILY, #90 01/23/15 Discontinued Reported Medications [Iron] No Conflict Check, 65 MG PO DAILY 11/08/16 Cyanocobalamin (Vitamin B-12) (Vitamin B12) 2,500 Mcg Tablet, 2500 MCG PO DAILY, TAB 11/08/16 Ascorbic Acid (Vitamin C) 1,000 Mg Tablet, 1000 MG PO DAILY, TAB 11/08/16 Latanoprost (Latanoprost) 1 Gm Oil, 1 DROP MC HS, APPL 11/08/16 Metoprolol Succinate (Metoprolol Succinate) 25 Mg Tab.er.24h, 25 MG PO DAILY, TAB 11/08/16 Losartan Potassium (Losartan Potassium) 25 Mg Tablet, 25 MG PO DAILY, TAB 11/08/16 Docusate Sodium (Dok) 100 Mg Capsule, 100 MG PO TIDP PRN for CONTIPATION, CAP 11/08/16 Meclizine HCl (Meclizine HCl) 12.5 Mg Tablet, 12.5 MG PO TIDP PRN for DIZZINESS, TAB 11/08/16 Levetiracetam (Levetiracetam) 500 Mg Tablet, 500 MG PO BID, #180 01/23/15 Continued Medications: Amlodipine Besylate (Amlodipine Besylate) 2.5 Mg Tablet 2.5 MG PO AM, TAB Aspirin (Aspir 81) 81 Mg Tablet.dr 81 MG PO DAILY, TAB Atorvastatin Calcium (Atorvastatin Calcium) 20 Mg Tablet 20 MG PO HS, TAB Cholecalciferol (Vitamin D3) (Vitamin D3) 25 Mcg (1000 Unit) Tablet 25 MCG PO AM, TAB Clopidogrel Bisulfate (Clopidogrel) 75 Mg Tablet 75 MG PO DAILY, #90 Cyanocobalamin (Vitamin B-12) 500 Mcg Tab 500 MCG PO AM, TAB Ferrous Sulfate (Ferrous Sulfate) 15 Mg Iron (75 Mg)/Ml Drops 65 MG PO AM, DROP Folic Acid (Folic Acid) 20 Mg Capsule 666 MCG PO AM, CAP Isosorbide Mononitrate (Isosorbide Mononitrate ER) 30 Mg Tab.er.24h 30 MG PO AM, TAB Latanoprost (Latanoprost) 0.005 % Drops 2.5 ML OP AM, DROP Levetiracetam (Levetiracetam) 500 Mg Tablet 500 MG PO BID, TAB Losartan Potassium (Losartan Potassium) 100 Mg Tablet 100 MG PO AM, TAB Metoprolol Succinate (Metoprolol Succinate) 50 Mg Tab.er.24h 50 MG PO AM, TAB Nitroglycerin (Nitrostat) 0.4 Mg Tab.subl 1 TAB SL Q5M PRN for CHEST PAIN, #25 [place]-3S/Dha/Epa/Fish Oil/D3 (Fish Oil + D3 Softgel) 1 Each Capsule 1 EACH PO DAILYLUNCH, CAP Tamsulosin HCl (Tamsulosin HCl) 0.4 Mg Cap.er.24h 0.4 MG PO HS, CAPSULE. Time spent arranging discharge: 31-60 minutes INO SCHOFIELD MD Oct 28, 2024 12:11
--- NOTE | 2024-10-28 13:46 | PN ---
[facility] CARDIOLOGY PROGRESS NOTE Date Patient Seen: Oct 28, 2024 Attending Candle Pourer: Dr. Antonietta Samson Primary Candle Pourer: Dr. Deepak Burks Reason for Consult: CAD s/p PCI Interval History: This is a 69y/o male who was seen and evaluated at the bedside today. The patient denies any chest pain, chest pressure, palpitations, shortness of breath, or significant pain at the right groin access site. As per the nurse, there were no overnight reported events. Physical Examination: GENERAL: [No acute distress. Chronically ill appearing. ] HEAD: [Normal with no signs of head trauma.] EYES: [PERRLA, EOMI, conjunctiva and sclera normal.] NECK: [Supple without JVD. There is no tenderness, lymphadenopathy, or masses. No thyromegaly. Normal carotid upstrokes without bruits.] LUNGS: [SCM. Bilateral air entry. Clear breath sounds bilaterally. No obvious wheezing, rales, or rhonchi.] HEART: [Regular rate. Normal S1 and S2. No obvious murmurs, gallops, or rubs noted.] VASC: [Peripheral pulses +2 bilaterally. There is extensive bruising noted to the right groin access site.] EXT: [No clubbing, cyanosis or edema.] NEURO: [Awake, alert, and oriented. No focal neurological deficits noted.] Laboratory: Hematology Labs: Test 10/28/24 04:01 Range/Units White Blood Count 7.3 4.8-10.8 K/uL Red Blood Count 3.44 L 4.50-6.20 MIL/uL Hemoglobin 11.0 L 14.0-18.0 g/dL Hematocrit 30.6 L 42-54 % Mean Corpuscular Volume 89.0 79-99 fL Mean Corpuscular Hemoglobin 32.0 27.0-33.0 pg Mean Corpuscular Hemoglobin Concent 35.9 32.0-36.0 g/dL Red Cell Distribution Width 12.3 11.0-15.5 % Platelet Count 145 130-400 K/uL Mean Platelet Volume 9.8 7.5-10.5 fL Immature Granulocyte % (Auto) 0.1 0-1 % Neutrophils (%) (Auto) 57.7 40.0-77.0 % Lymphocytes (%) (Auto) 35.0 21.0-51.0 % Monocytes (%) (Auto) 6.2 3.0-13.0 % Eosinophils (%) (Auto) 0.6 0.0-8.0 % Basophils (%) (Auto) 0.4 0.0-5.0 % Neutrophils # (Auto) 4.2 1.8-7.7 K/uL Lymphocytes # (Auto) 2.5 1.0-4.8 K/uL Monocytes # (Auto) 0.5 0.1-1.0 K/uL Eosinophils # (Auto) 0.04 0.00-0.70 K/uL Basophils # (Auto) 0.03 0.00-0.20 K/uL Absolute Immature Granulocyte (auto 0.01 0-1 K/uL Nucleated Red Blood Cells 0.0 0.0-0.19 % Chemistry Labs: Test 10/28/24 11:54 10/28/24 04:01 10/27/24 03:31 Range/Units Whole Blood Glucose 101 70-110 MG/DL Sodium Level 141 136-145 mmol/L Potassium Level 3.7 3.5-5.1 mmol/L Chloride Level 106 101-111 mmol/L Carbon Dioxide Level 30 21-32 mmol/L Blood Urea Nitrogen 30 H 7-18 mg/dL Creatinine 1.5 H 0.5-1.3 mg/dL Glomerular Filtration Rate Calc 49 >90 mL/min Random Glucose 105 70-105 mg/dL Total Calcium 8.5 8.5-10.1 mg/dL Magnesium Level 2.00 1.80-2.40 mg/dL Total Bilirubin 0.6 0.2-1.0 mg/dL Aspartate Amino Transf (AST/SGOT) 26 10-37 U/L Alanine Aminotransferase (ALT/SGPT) 22 12-78 U/L Alkaline Phosphatase 92 50-136 U/L Total Protein 6.8 6.0-8.3 g/dL Albumin 3.5 3.5-5.0 g/dL Hemoglobin A1c 5.4 4.0-6.0 % Estimated Average Glucose (eAG) 108 70-126 mg/dL B-Type Natriuretic Peptide 53 0-100 pg/mL Triglycerides Level 87 30-200 mg/dL Cholesterol Level 113 <200 mg/dL LDL Cholesterol 58 0-99 mg/dL HDL Cholesterol 45 29-71 mg/dL Thyroid Stimulating Hormone (TSH) 1.07 0.36-3.74 uIU/mL Assessment: -CAD s/p PCI with GALINDO placement (MOF 2.75x38 mm) in the Ramus and GALINDO placement (MOF 2.75x22 mm) in the body of the SVG-D1 done on 10/26/2024 -Postprocedure acute blood loss anemia -Right groin hematoma (2.3x3.1 cm) identified on ultrasound done 10/26/2024 -BLANCA -CAD s/p 7V CABG (sequential HIOL-CUJ-NAER, sequential SQS-Avuyi-SE, SVG-DIAG, Y graft to the RPDA-RPLB) -HTN -HLP -Seizure disorder on AED therapy -BPH Plan: 1. CAD s/p PCI with GALINDO placement (MOF 2.75x38 mm) in the Ramus and GALINDO placement (MOF 2.75x22 mm) in the body of the SVG-D1 done on 10/26/2024 -The patient will continue on aspirin 81 mg daily, clopidogrel 75 mg daily, a torvastatin 20 mg QHS, and we will restart him on his home medications of metoprolol succinate 50 mg daily and isosorbide mononitrate ER 30 mg daily. 2. Right groin hematoma (2.3x3.1 cm) identified on ultrasound done 10/26/2024 -Stable -Hemoglobin: 11.0, previously: 11.8, preprocedure: 13.6 -We are pending a H/H at 2PM, and if stable, the patient can be discharged from a Cardiac Standpoint. 3. BLANCA -Improved -BUN/creatinine: 30/1.5, previously: 38/2.1, preprocedure: 12/1.1 Please have the patient follow up with Cardiology, Dr. Deepak Burks, 1-2 weeks after discharge. This case was discussed with my Supervising Physician, Dr. Antonietta Samson, and the above mentioned plan was formulated and agreed upon. -Progress Note written by Yogi Escalona, MSN, BAR TACKER, AGACNP-BC YOGI ESCALONA NP Oct 28, 2024 13:45
[2024-10-28 14:33] LABS: HEMATOCRIT 31.8 % (42-54)
--- NOTE | 2024-10-28 16:26 | NUR ---
GIVEN DISMISSAL INSTRUCTIONS, VERBALIZED UNDERSTANDING. REMOVED TELE PACK. REMOVED SALINE LOCK FROM LEFT HAND, IV SITE WITHOUT REDNESS NOTED.
[2024-10-29] MEDS ORDERED: metOPROLol sucCINATE 50 MG TAB.SR.24H PO SCH (09:00)
[2024-10-29] MEDS ORDERED: ISOSORBIDE MONO 30MG SR TAB PO SCH (09:00)
== END 2024-10-28 16:55 | disposition home or self-care (01) ==
LOC: DAH 05:36 → CLH 05:36 → DAHIP 05:37 → 2DH 17:30
PROVIDERS: ADMIT Internal Medicine; ATTEND Internal Medicine
DX: I25.810 Atherosclerosis of coronary artery bypass graft(s) without angina pectoris (principal); S30.1XXA Contusion of abdominal wall, initial encounter; I10 Essential (primary) hypertension; E78.5 Hyperlipidemia, unspecified; G40.909 Epilepsy, unspecified, not intractable, without status epilepticus; N40.0 Benign prostatic hyperplasia without lower urinary tract symptoms; D62 Acute posthemorrhagic anemia; R79.89 Other specified abnormal findings of blood chemistry; R00.1 Bradycardia, unspecified; E11.9 Type 2 diabetes mellitus without complications; I35.8 Other nonrheumatic aortic valve disorders; Z86.2 Personal history of diseases of the blood and blood-forming organs and certain disorders involving the immune mechanism; Z88.0 Allergy status to penicillin; Z79.899 Other long term (current) drug therapy; X58.XXXA Exposure to other specified factors, initial encounter; Y93.89 Activity, other specified; Y92.89 Other specified places as the place of occurrence of the external cause; Y99.8 Other external cause status
CPT/HCPCS: 80048; 83880 ×2; 85025 ×3; 85610; 85730; 81001; 36415 ×3; 71045; 93005; 93459; 96376; 96375; 85347; 87086; 82948 ×7; 76882; 96365; 83036; 84443; 83735 ×2; 80061; 80053 ×2; 97161; 97116 ×2; 97530 ×3; 85014; 85018; C1769; C1874 ×2; C1887 ×5; C1760; C1894; Q9965; G0378 ×48; J3490 ×3; J7030; J0360; J0461; J0696 ×2; J1644 ×2; J2250 ×2; J2175; Q9967 ×2; A4215; A4223 ×3; A4222; A4221; A4663; A4216; A4606; C9600; C9604; 93458; 99156; 99157